=== PATIENT | female | born 1940 | race Caucasian/White ===

== ENCOUNTER 2018-02-09 10:36 | Inpatient (IN) | payer MEDICARE, OTHER ==
[~2018-02-09] VITALS: Ht 162.6 cm; Wt 71.7 kg
[2018-02-09] VITALS (7 sets, daily range): BP systolic 121–144; BP diastolic 61–85
[2018-02-09] MEDS ORDERED: ASPIR 8181 MG PO (10:56)
[2018-02-09 11:06] LABS: ABSOLUTE BASOPHILS 0.1 thou/uL (0.0-0.2); ABSOLUTE EOSINOPHILS 0.1 thou/uL (0.0-0.7); ABSOLUTE LYMPHOCYTES 2.5 thou/uL (0.8-5.3); ABSOLUTE MONOCYTES 0.9 thou/uL (0.0-1.2); ABSOLUTE NEUTROPHILS 10.2 thou/uL (1.6-8.1); BASOPHILS 0.4 %; EOSINOPHILS 0.4 %; HEMOGLOBIN 15.2 gm/dL (12.0-15.0); LYMPHOCYTES 18.2 %; MCHC 33.7 g/dL (28.0-37.0); MCV 94.8 fL (80.0-100.0); MONOCYTES 6.8 %; NUCLEATED RBCS 0 /100WBC; PLATELET COUNT* 238 thou/uL (150-400); POLYS 74.2 %; RBC 4.75 mil/uL (4.20-5.00); RDW-CV 13.6 % (10.5-14.5); WBC 13.8 thou/uL (4.0-11.0)
[2018-02-09 11:16] LABS: APTT 26.3 Seconds (25.0-31.3); CALCIUM 8.9 mg/dL (8.5-10.1); CREATININE 0.9 mg/dL (0.6-1.3); INR 1.2; PROTIME 11.7 Seconds (9.20-11.50)
[2018-02-09 11:18] LABS: POTASSIUM 3.4 mmol/L (3.5-5.1)
[2018-02-09] MEDS ORDERED: PRILOSEC 20 MG20 MG PO (11:21)
[2018-02-09] MEDS ORDERED: LOPRESSOR50 PO (11:21)
[2018-02-09 11:28] LABS: ALBUMIN 3.4 g/dL (3.4-5.0); TOTAL BILIRUBIN 1.1 mg/dL (<0.1-1.0); TOTAL PROTEIN 7.2 g/dL (6.4-8.2)
--- NOTE | 2018-02-09 11:30 | NUR ---
PT HAS PERIODS WHERE HR WILL INCREASED TO 170 FOR A FEW SECONDS BUT DOES GO BACK DOWN TO 118, DR IS AWARE COPY OF EVENT ON CHART.
[2018-02-09] MEDS ORDERED: FISH OIL 1,001000 M2 PO (13:36)
[2018-02-09] MEDS ORDERED: RENAPLEX TABLE1 EACH PO (13:38)
[2018-02-09] MEDS ORDERED: MULTIVITAMINS1 EAC7 PO (13:39)
--- NOTE | 2018-02-09 14:49 | NUR ---
RECIEVED REPORT FROM AMADOR SANCHEZ IN ER NOF EXPECTED TRANSFER AT 1250- DX: N/V WITH DYSRHYTHMIA/AFIB- FLUTTER- PT ARRIVED TO ROOM 201 VIA CART WITH ASSIT X1 TO BED- PUBLIC POLICY ANALYST PLACED ORDERED, TRACING SR/ST WITH PVC- UPON ASSESSMENT PT NOTED TO BE A&O X4- CONTINENT OF BOWEL AND BLADDER, STRESS INCONTINENTS NOTED- LCTA, DIMINISEHD IN BASES- RESP EVEN AND UN-LABORED- VS 98.5 18 167/80 110 94% ON RA- NO C/O DYSPNEA- ABDOMEN SOFT/ROUND/NON-TENDER, BS X4 QUADS- PT REPORTS LAST BM X3 DAYS AGO WITH EGD COMPLETETION- IV NOTED TO RIGHT AC AND LEFT WRIST INTACT AND SL UPON ADMISSION- SKIN C/D/I- NOTED TO HAVE OWN TEETH- WEARS GLASSES FOR READING- DAUGHTER AT SIDE AT TIME OF ADMISSION- PT REPORTS CHRONIC NAUSEA R/T HIATAL HERNIA- HERE TO SES PT WITH NEW ORDERS NOTED FOR IL NS BOLUS X1 AND CARDIZEM DRIP WITH 10MG BOLUS PRIOR TO FOLLOW- HEART HEALTHY DIET INTIATED- PT DENIES ANY C/O PAIN/DISCOMFORT AT THIS TIME- CALL LIGHT AND PERSONAL BELONGINGS WITH IN REACH- HOURLY ROUNDS IN PLACE R/T SAFETY/NEEDS- ALL NEEDS MET AT THIS TIME-WCTM
[2018-02-10] VITALS: BP 111/57
[2018-02-10 03:44] VITALS: BP 144/78
[2018-02-10 04:23] LABS: HEMOGLOBIN 14.4 gm/dL (12.0-15.0); MCH 32.1 pg (26.0-34.0); MCHC 34.4 g/dL (28.0-37.0); MCV 93.5 fL (80.0-100.0); MPV 6.9 fl. (7.2-11.1); RBC 4.49 mil/uL (4.20-5.00); RDW-CV 13.6 % (10.5-14.5); WBC 10.1 thou/uL (4.0-11.0)
[2018-02-10 04:41] LABS: ALBUMIN 3.1 g/dL (3.4-5.0); CREATININE 0.6 mg/dL (0.6-1.3); MAGNESIUM 1.8 mg/dL (1.8-2.4); TOTAL PROTEIN 6.3 g/dL (6.4-8.2)
[2018-02-10 04:46] LABS: POTASSIUM 2.9 mmol/L (3.5-5.1)
--- NOTE | 2018-02-10 05:45 | NUR ---
A&O X4 CALM COOPERITVE. STAND BY ASSIT SR-ST ON THE MOINTIOR. PT K+ LEVEL WAS CRITICAL 2.9 IN AM, PROVIDER NOTIFIED ELECTROLITE PROTOCOL ORDERED AND STARTED. CARTIZIM DRIP LOWERED TO 5 FROM 10 HR AND BP STABLE. DENIES PAIN. VITALS WNL. SEE MAR. SEE CHARTING. FALL PRECATUIONS IN PLACE. HOURLY ROUNDING FOR SAFETY.
[2018-02-10] MEDS ORDERED: PROBIOTIC & AC1 EACH PO (07:31)
[2018-02-10 07:43] VITALS: BP 121/76
--- NOTE | 2018-02-10 08:28 | NUR ---
ASSUMED CARE OF PT THIS AM AROUND 714- SALES AND BUSINESS DEVELOPMENT MANAGER IN PLACE ORDERED, TRACING SR- UPON ASSESSMENT PT NOTED TO BE RESTING IN BED, EYES CLOSED- PT A&O X4- CONTINENT OF BOWEL AND BLADDER- SBA WITH TRANSFERS FOR SAFETY- LCTA, DIMINISHED IN BASES; RESP EVEN AND UN-LABORED- VSS, O2 SAT 94% ON RA- NO C/O DYSPNEA NOTED- ABDOMEN SOFT/ROUND/NON-TENDER, BS X4 QUADS- LAST BM REPORTED X4 DAYS AGO, REPORTS TO BE PASSING GAS OKAY- IV NOTED TO RIGHT AC INTACT AND SL, IV # 2 NOTED TO LEFT FA INTACT WITH IV CARDIZEM INFUSING AT 5ML/HR INDICATED- K+ CURRENLTY BEING REPLACED PER PROTOCOL WITH REDRAW TO FOLLOW- PT C/O INDIGESTION THIS AM, NOTIFIED WITH ORDERS OBATINED FOR TUMS 1-2 TABS PRN Q 2 HOURS, AND GIVEN THIS AM REQUESTED- PT DENIES ANY C/O PAIN AT THIS TIME- CALL LIGHT AND PERSONAL BELONGINGS WITH IN REACH- HOURLY ROUNDS IN PLACE R/T SAFETY/NEEDS- ALL NEEDS MET AT THIS TIME-WCTM
--- NOTE | 2018-02-10 10:13 | CON ---
[address] [address] CONSULTATION Name: FRANCISCO WALTERS Room: [address] ADM IN M.R.#: [id number] Admission: 02/09/18 Attend Phys: Stepan Bower, Discharge: Date of : 40 Report #: [id number] THIS REPORT FOR: //name// CC: Abad Bower DATE OF SERVICE: 02/09/2018 INDICATION: Tachycardia. HISTORY OF PRESENT ILLNESS: The patient is a very pleasant 77-year-old white female with no prior significant cardiac history. She reports nausea and vomiting and fever and myalgias for the past 5 days. This morning she was quite weak and unable to get up. At that time, she called the ambulance and was transferred to the hospital. She was found on EMS arrival to be in a rapid tachycardia. This apparently appeared fairly regular rate and she was given amiodarone bolus in the Emergency Room. With that she has slowed. Review of the telemetry appears to show multifocal atrial tachycardia. She has fairly obvious P waves when her heart rate slows. She continues to be somewhat irregular. She denies chest pain. She is not having shortness of breath. She is without other cardiac complaint. PAST MEDICAL HISTORY: 1. 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 2. Hypertension. 3. Gastroesophageal reflux. 4. Hiatal hernia. PAST SURGICAL HISTORY: 1. Hiatal hernia repair. 2. Hysterectomy with right oophorectomy. 3. Cholecystectomy. ALLERGIES: PENICILLIN AND SULFA. CURRENT MEDICATIONS: Aspirin 81 mg daily, fish oil 1000 mg t.i.d., Lopressor 25 mg b.i.d., multivitamin 1 tablet daily, Prilosec 20 mg daily, RenaPlex tablet 1 daily. SOCIAL HISTORY: The patient quit smoking over 25 years ago. She does not drink alcohol. She is . She has supportive family with her. She lives in [place], [place]. FAMILY HISTORY: The patient's mother of a heart attack [place] 58[place] [address] CONSULTATION Name: FRANCISCO WALTERS Room: [address] IN [facility].#: [id number] Admission: 02/09/18 Attend Phys: Stepan Bower, Discharge: Date of : 40 Report #: [id number] patient's father after cholecystectomy at the age of 56. REVIEW OF SYSTEMS: A 14-point review of systems is positive for left-sided weakness 5 years ago with hemorrhagic CVA that has resolved, some weight loss with recent nausea and vomiting, and some fever with recent nausea and vomiting. She had pneumonia 6 years ago. She reports palpitations with the recent illness. She has near syncope, but no syncope. She has vomiting without hematemesis. She reports a history of ulcers years ago. She has seasonal allergies. She has medical allergies as outlined above. She reports arthritis without connective tissue disease. She wears glasses without acute visual loss. She has decreased hearing. A 14-point review of systems was otherwise unremarkable. PHYSICAL EXAMINATION: VITAL SIGNS: Presently, blood pressure 121/85, pulse is in the low 100s. GENERAL: This is a pleasant elderly female who does not appear to be in distress. HEENT: The patient is wearing glasses. Extraocular muscles intact. Mucous membranes are moist. NECK: Shows no jugular venous distention. There are no carotid bruits. CHEST: Reveals clear lung moore without wheezes, rales or rhonchi. CARDIOVASCULAR: Reveals an irregular rhythm that is mildly tachycardic. I do not appreciate gallop or murmur. ABDOMEN: Reveals normal bowel sounds. The abdomen is soft, nontender. EXTREMITIES: Shows no edema. SKIN: Warm and dry. A 12-lead EKG presently shows a sinus tachycardia. Telemetry shows what appears to be multifocal atrial tachycardia. Troponin is less than 0.06. Chest x-ray shows no acute cardiopulmonary abnormality. CTA of the chest shows no evidence of pulmonary embolus or dissection. IMPRESSION AND RECOMMENDATIONS: 1. Multifocal atrial tachycardia due to ongoing gastrointestinal illness with dehydration. Would treat underlying cause. We will start diltiazem drip to control heart rate. Would recommend repeat fluid bolus and I will order another liter of normal saline at this time. 2. Gastroenteritis, [place] [address] CONSULTATION Name: FRANCISCO WALTERS Room: [address] IN ..#: [id number] Admission: 02/09/18 Attend Phys: Stepan Bower, Discharge: Date of : 40 Report #: [id number] 3. Hypertension, presently blood pressure low. We will follow and resume metoprolol as tolerated. <ELECTRONICALLY SIGNED> By: Toni Sol MD, FACC 02/10/18 1013 1403 [id number] Sol MD, FACC /nt
[2018-02-10 11:29] VITALS: BP 127/65
--- NOTE | 2018-02-10 13:22 | EKG ---
[place] [address] ELECTROCARDIOGRAM REPORT Name: FRANCISCO WALTERS Room: [address] IN [facility].#: [id number] Admission: 02/09/18 Attend Phys: Stepan Bower, Discharge: Date of : 40 Report #: [id number] THIS REPORT FOR: //name// [facility] ED Test Date: 2018-02-09 Test Time: 10:45:13 Pat Name: FRANCISCO WALTERS Department: Room: Gender: Supply Chain Procurement Manager: Radha POLANCO : 1940 Requested By: Rafaela De Jesus Order Number: [id number] MD: Toni Sol Measurements Intervals [place] Rate: 100 P: -32 AK: 121 QRS: -10 QRSD: 83 T: 30 QT: 336 QTc: 434 Interpretive Statements Sinus tachycardia Low voltage, precordial leads No previous ECG available for comparison Electronically Signed On 02-10-2018 13:22:16 CDT by Toni Sol [email or web address] <ELECTRONICALLY SIGNED> By: Toni Sol MD, [facility] 02/10/18 1322 1045 1045 Toni Sol MD, FACC /EPI
[2018-02-10 15:34] VITALS: BP 168/84
--- NOTE | 2018-02-10 16:08 | NUR ---
PT CURRENTLY RESTING IN BED, DAUGHTER AT SIDE- TRADE SHOW MANAGER IN PLACE ORDERED, TRACING SR- IV TO RIGHT AC AND LEFT FA INTACT AND SL- IV CARDIZEM D/C'D THIS SHIFT PER -METOPROLOL INCREASED TO 50MG BID- K+ REPLACED PER PROTOCOL THIS SHIFT WITH REDRAW NOTED TO BE STABLE AT 3.6- SCHEDULED K+ DAILY STARTED PER -PT CONTINUES TO HAVE INDIGESTION COMPLIANTS- PT EDUCATED ON SITTING UP TO HELP- NOTIFIED OF INDIGESTION WITH GI COCKTAIL ORDERED X1 AND GIVEN AT 1245, MEDICATION NOTED TO BE EFECTIVE UNTIL AROUND 1600- PT C/O OF INDIGESTION AGAIN WITH PRN MYLANTA GIVEN AT 1605-GOOD PO INTAKE NOTED WITH MEALS THIS SHIFT- PT DENIES ANY C/O PAIN- CALL LIGHT AND PERSONAL BELONGINGS WITH IN REACH- ALL NEEDS MET AT THIS TIME-WCTM
[2018-02-10 19:40] VITALS: BP 155/73
[2018-02-11 00:06] VITALS: BP 156/85
[2018-02-11 04:06] VITALS: BP 144/92
--- NOTE | 2018-02-11 05:32 | NUR ---
A&O X4 CALM COOPERITVE. SR-ST ON THE MONITOR. DENIES PAIN. STAND BY ASSIST. RA. VITALS WNL. SEE MAR. SEE CHARTING. FALL PRECAUITONS IN PLACE. HOURLY ROUNDING FOR SAFETY.
[2018-02-11 05:38] LABS: HEMOGLOBIN 14.2 gm/dL (12.0-15.0); MCH 32.3 pg (26.0-34.0); MCHC 34.6 g/dL (28.0-37.0); MCV 93.4 fL (80.0-100.0); MPV 7.3 fl. (7.2-11.1); RBC 4.39 mil/uL (4.20-5.00); RDW-CV 13.5 % (10.5-14.5); WBC 10.6 thou/uL (4.0-11.0)
[2018-02-11 05:54] LABS: CALCIUM 8.5 mg/dL (8.5-10.1); CREATININE 0.7 mg/dL (0.6-1.3); MAGNESIUM 2.1 mg/dL (1.8-2.4); POTASSIUM 4.1 mmol/L (3.5-5.1)
[2018-02-11 07:41] VITALS: BP 146/91
[2018-02-11 12:52] VITALS: BP 146/91
--- NOTE | 2018-02-11 14:54 | 2DMMODE ---
[place] [address] 2 D/M-MODE ECHOCARDIOGRAM Name: ROMEOBAHMAN F Room: [address] IN M.R.#: [id number] Admission: 02/09/18 Attend Phys: Stepan Olea Discharge: 02/11/18 Date of : 40 Date of Service: 02/11/18 1454 Report #: [id number] THIS REPORT FOR: //name// APPROVED REPORT Study performed: 02/11/2018 09:30:10 EXAM: Comprehensive 2D, Doppler, and color-flow Echocardiogram Patient Location: Bedside BSA: 1.79 HR: 84 bpm BP: 146/91 mmHg Other Information Study Quality: Fair Indications Congestive Heart Failure 2D Dimensions LVEF(%): 68.55 (>50%) IVSd: 9.26 (7-11mm) LVOT Diam: 18.17 (18-24mm) LVDd: 41.77 mm PWd: 8.60 (7-11mm) Ascending Ao: 30.76 (22-36mm) LVDs: 25.91 (25-40mm) Aortic Root: 24.43 mm Bolden's LVEF: 68.55 % Volumes Left Atrial Volume (Systole) LA ESV Index: 28.80 mL/m2 Aortic Valve AoV Peak Chava.: 1.13 m/s AO Peak Gr.: 5.12 mmHg LVOT Max P.05 mmHg AO Mean Gr.: 2.94 mmHg LVOT Mean P.26 mmHg LVOT Max V: 0.87 m/s AO V2 VTI: 20.16 cm LVOT Mean V: 0.51 m/s SYLVIA (VTI): 1.89 cm2 LVOT V1 VTI: 14.67 cm Mitral Valve E/A Ratio: 0.65 MV Decel. Time: 241.19 ms MV E Max Chava.: 0.49 m/[place] [address] 2 D/M-MODE ECHOCARDIOGRAM Name: ROMEOBAHMAN F Room: [address] IN .R.#: [id number] Admission: 02/09/18 Attend Phys: Stepan Olea Discharge: 02/11/18 Date of : 40 Date of Service: 02/11/18 1454 Report #: [id number] MV PHT: 69.95 ms MVA (PHT): 3.15 cm2 TDI E/Lateral E': 7.00 E/Medial E': 7.00 Medial E' Chava.: 0.07 m/s Lateral E' Chava.: 0.07 m/s Pulmonary Valve PV Peak Chava.: 0.88 m/s PV Peak Gr.: 3.13 mmHg Tricuspid Valve RAP Estimate: 5.00 mmHg TR Peak Gr.: 29.71 mmHg RVSP: 34.71 mmHg PA Pressure: 34.71 mmHg Left Ventricle The left ventricle is normal size. There is normal LV segmental wall motion. There is normal left ventricular wall thickness. Left ventricular systolic function is normal. The left ventricular ejection fraction is within the normal range. LVEF is 50-55%. Grade I - abnormal relaxation pattern. Right Ventricle The right ventricle is normal size. The right ventricular systolic function is normal. Atria The left atrium size is normal. The atrial septum is aneurysmal. The right atrium size is normal. Aortic Valve The aortic valve is normal in structure. No aortic regurgitation is present. There is no aortic valvular stenosis. Mitral Valve Mitral valve leaflets are mildly thickened. Mild mitral regurgitation. No evidence of mitral valve stenosis. Tricuspid Valve The tricuspid valve is normal in structure. Trace tricuspid regurgitation. estimated pa pressure 35 mm Hg Pulmonic Valve Pulmonic valve is not well visualized. There is no pulmonic [place] [address] 2 D/M-MODE ECHOCARDIOGRAM Name: ROMEOBAHMAN Room: [address] IN M.R.#: [id number] Admission: 02/09/18 Attend Phys: Stepan Olea Discharge: 02/11/18 Date of : 40 Date of Service: 02/11/18 1454 Report #: [id number] Great Vessels The aortic root is normal in size. IVC is normal in size and collapses with >50% inspiration Pericardium There is no pericardial effusion. <Conclusion> Left ventricular systolic function is normal. The left ventricular ejection fraction is within the normal range. <ELECTRONICALLY SIGNED> By: Abad Cowan MD, FACC 02/11/18 1454 1454 1454 Abad Cowan MD, FACC /INF
--- NOTE | 2018-02-11 15:21 | NUR ---
RECIEVED REPORT AND ASSUMED CARE AT 0730. VSS, CARDIAC MONITORING IN PLACE. PT UP SBA IN ROOM, ON RA. PT DENIES ANY COMPLAINTS OF PAIN. ASSESSMENT COMPLETED CHARTED. DISCUSSED PLAN OF CARE WITH PT. VERBALIZED UNDERSTANDING. BED IN LOWEST POSITION, CALL LIGHT WITHIN REACH, BED ALARM ON. HOURLY ROUNDING COMPLTED, ALL NEEDS MET. DISCHARGE ORDER PLACED THIS SHIFT. IV AND CARDIAC MONITORING DISCONTINUED. ALL PT BELONGINGS GATHERED AND GIVEN TO PT. DISCHARGE INSTRUCTIONS DISCUSSED WITH PT, VERBALIZED UNDERSTANDING. ALL QUESTIONS AND CONCERNS ADDRESSED AT THIS TIME. PT TRANSPORTED IN W/C BY NURSING STAFF TO HER DAUGHTERS PERSONAL CAR.
== END 2018-02-11 14:00 | disposition home or self-care (01) | DRG 392 ==
LOC: M.ERS 10:36 → M.2W 12:26 → M.TBA-ER 12:26 → M.2W 13:09
PROVIDERS: Personal Emergency Response Attendant; ADMIT Family Medicine
DX: A08.4 Viral intestinal infection, unspecified (principal); E44.1 Mild protein-calorie malnutrition; J98.11 Atelectasis; I48.92 Unspecified atrial flutter; R65.10 Systemic inflammatory response syndrome (SIRS) of non-infectious origin without acute organ dysfunction; I48.91 Unspecified atrial fibrillation; K21.9 Gastro-esophageal reflux disease without esophagitis; I10 Essential (primary) hypertension; E86.0 Dehydration; E87.6 Hypokalemia; Z88.2 Allergy status to sulfonamides; Z88.0 Allergy status to penicillin; Z79.82 Long term (current) use of aspirin; Z79.899 Other long term (current) drug therapy; Z86.73 Personal history of transient ischemic attack (TIA), and cerebral infarction without residual deficits; Z87.891 Personal history of nicotine dependence; Z82.49 Family history of ischemic heart disease and other diseases of the circulatory system; Z90.710 Acquired absence of both cervix and uterus; Z90.49 Acquired absence of other specified parts of digestive tract; Z68.27 Body mass index [BMI] 27.0-27.9, adult